=== PATIENT | female | born 1995 | race Caucasian/White ===

== ENCOUNTER 2016-06-22 05:41 | Day surgery (SDC) | payer OTHER ==
[~2016-06-22] VITALS: Ht 167.6 cm; Wt 74.8 kg
[2016-06-22] MEDS ORDERED: WATER FOR IRRIGATION,STERILE 1,000 ML IRRIG.SOLN IR ONE (07:01)
[2016-06-22] MEDS ORDERED: MIDAZOLAM HCL 5 MG/5 ML VIAL IVP ONE (07:01)
[2016-06-22] MEDS ORDERED: SUCCINYLCHOLINE CHLORIDE 20 MG/ML(QUELICIN) IVP ONE (07:01)
[2016-06-22] MEDS ORDERED: fentaNYL CITRATE/PF 100 MCG/2 ML AMP IVP ONE (07:01)
[2016-06-22] MEDS ORDERED: DEXAMETHASONE SOD PHOSPHATE 4 MG/ML VIAL IVP ONE (07:01)
[2016-06-22] MEDS ORDERED: PROPOFOL 200MG/ 20ML VIAL (DIPRIVAN) IV ONE (07:01)
[2016-06-22] MEDS ORDERED: SEVOFLURANE 15 MIN GAS INH ONE (07:01)
[2016-06-22] MEDS ORDERED: ONDANSETRON HCL 4 MG/2 ML VIAL IVP ONE (07:01)
[2016-06-22] MEDS ORDERED: LR 1,000 ML IV.SOLN IV ONE (07:01)
[2016-06-22] MEDS ORDERED: ONDANSETRON HCL 4 MG/2 ML VIAL IVP PRN (08:00)
[2016-06-22] MEDS ORDERED: HYDROmorphone 1 MG INJ. 1 MG/ML AMPUL IVP PRN (08:00)
[2016-06-22] MEDS ORDERED: HYDROmorphone 2 MG/ML VIAL IVP PRN ×2 (08:00)
[2016-06-22] MEDS ORDERED: MEPERIDINE HCL/PF 25 MG/ML DISP.SYRIN IVP PRN ×2 (08:00)
[2016-06-22] MEDS ORDERED: LR 1,000 ML IV SCH (08:00)
[2016-06-22 09:43] VITALS: BP_SYST 126
== END 2016-06-22 10:35 | disposition home or self-care (01) ==
LOC: SDS 05:41
PROVIDERS: ATTEND Otolaryngology
DX: J35.01 Chronic tonsillitis (principal)
CPT/HCPCS: 42826; 88304; J0330; J1100; J2250; J2405; J2704; J3010; J7120